=== PATIENT | male | born 1965 | race Caucasian/White ===

== ENCOUNTER 2021-11-16 11:53 | Outpatient (CLI) | payer OTHER, SELFPAY ==
--- NOTE | ~2021-11-16 | XR_ITS ---
EXAMINATION: XR chest 2V DATE: 11/16/2021 13:14 INDICATION: Hypertension. Malignant neoplasm of prostate. Preop. TECHNIQUE: Frontal and lateral views of the chest were obtained. COMPARISON: None. FINDINGS: The chest demonstrates clear lungs without pneumonia, pleural effusion, or pneumothorax. Th e heart size is normal. IMPRESSION: 1. No acute cardiopulmonary disease. Reviewed, dictated and finalized at location A.
--- NOTE | 2021-11-16 12:48 | ECG_ITS ---
Measurements Intervals [place] Rate: 76 P: 39 AR: 182 QRS: 31 QRSD: 101 T: 26 QT: 341 QTc: 384 Interpretive Statements SINUS RHYTHM WITH SINUS ARRHYTHMIA NO PREVIOUS ECG AVAILABLE FOR COMPARISON Electronically Signed On 11-16-2021 15:38:35 CDT by Ja Willams MD
[2021-11-16 13:26] LABS: Basophils Percent Auto 0.7 % (0.2-1.2); Eosinophils Absolute Auto 0.1 K/mm3 (0-0.3); Eosinophils Percent Auto 1.5 % (0-4.4); Hematocrit 46.4 % (42.0-52.0); Hemoglobin 15.3 g/dL (14.0-18.0); Immature Granulocyte Absolute 0.02 K/mm3 (0.00-0.031); Immature Granulocyte Percent A 0.3 % (0-0.5); Lymphocytes Absolute Auto 1.46 K/mm3 (0.9-3.2); Lymphocytes Percent Auto 23.9 % (18.3-44.2); Mean Corpuscular Hemoglobin 31.2 pg (26-34); Mean Corpuscular Volume 94.5 fl (80-100); Mean Platelet Volume 10.5 fl (7.4-10.4); Monocytes Absolute Auto 0.4 K/mm3 (0.1-0.6); Monocytes Percent Auto 6.7 % (2.6-8.5); Neutrophils Absolute Auto 4.1 K/mm3 (1.3-6.7); Neutrophils Percent Auto 66.9 % (45.5-73.1); Platelet Count Result 250 k/mm3 (150-375); Red Blood Count 4.91 M/mm3 (4.6-6.20); Red Cell Distribution Width 12.5 % (11.5-14.5); White Blood Count 6.1 K/mm3 (4.5-10.0)
[2021-11-16 13:30] LABS: Appearance Urine Slightly Cloudy (Clear); Bilirubin Urine Negative (Negative); Color Urine Yellow (Yellow); Glucose Urine UA 2+ mg/dL (Negative); Ketones Urine Negative (Negative); Leukocyte Esterase Ur Negative LEU/UL (Negative); Nitrate Urine Negative (Negative); Protein Urine 1+ mg/dL (Negative); Specific Grav Ur >= 1.030 (1.001-1.035); Urobilinogen Urine 0.2 mg/dL (<2.0); pH Urine 5.5 (5.0-9.0)
[2021-11-16 13:33] LABS: Add Urine Microscopic? YES; Blood Urine Trace-Intact (Negative)
[2021-11-16 13:37] LABS: Mucus Urine Rare /lpf; Squamous Epithelial Cell Urine Rare /hpf (Few); WBC Urine 0-3 /hpf
[2021-11-16 13:39] LABS: INR 1.1; Partial Thromboplastin Time 27.4 SECONDS (22.3-36.8); Prothrombin Time 13.3 Seconds (11.1-14.7)
[2021-11-16 13:43] LABS: Alanine Aminotransferase 54 U/L (6-50); Albumin Level 4.6 g/dL (3.5-5.1); Alkaline Phosphatase 74 U/L (38-126); Anion Gap 8 mmol/L (8-16); Aspartate Amino Transferase 35 U/L (17-59); Bilirubin,Total 0.7 mg/dL (0.2-1.3); Blood Urea Nitrogen 17 mg/dL (9-20); Calcium 9.2 mg/dL (8.4-10.2); Carbon Dioxide 29 mmol/L (22-30); Chloride 102 mmol/L (98-107); Estimated Glomerular Filt Rate > 60; Glucose 228 mg/dL (65-110); Potassium 4.2 mmol/L (3.4-5.0); Sodium 139 mmol/L (137-145)
== END 2021-11-16 11:54 | disposition home or self-care (01) ==
PROVIDERS: Visit Provider Urology
DX: C61 Malignant neoplasm of prostate (principal)
CPT/HCPCS: 36415; 71046; 80053; 81001; 85025; 85610; 85730; 86850; 86900; 86901; 93005

== ENCOUNTER 2021-11-26 00:50 | Day surgery (SDC) | payer OTHER, SELFPAY ==
--- NOTE | 2021-11-05 07:29 | P.HP_ITS ---
H&P: HPI History of Present Illness Date/Time: 11/05/21 07:29 Chief Complaint: Prostate cancer Narrative: Pleasant 56-year-old recently referred with a PSA of 4.47. Prostate ultrasound biopsy revealed a 34.7 g prostate with 6 of 12 cores having Jose 3+3=6 prostate cancer. Five of the cores arose from the left side of the prostate with 1 core positive at the right base. After discussion of therapeutic options he has elected for a robotic prostatectomy with bilateral pelvic lymphadenectomy. He is aware the risk of this including, but not limited to, adverse cardiopulmonary events, rectal injury, persistent or recurrent cancer, erectile dysfunction and urinary incontinence. Review of Systems Cardiovascular: Cardiovascular: Denies chest pain, Denies lightheadedness, Denies palpitations and Denies dyspnea Respiratory: Respiratory: Denies dyspnea Gastrointestinal: Gastrointestinal: Denies diarrhea, Denies nausea and Denies vomiting Genitourinary: Genitourinary: Denies hematuria and Denies dysuria Endocrine: Endocrine: Denies palpitations Meds Home Medications and Allergies Allergies Allergy/AdvReac Type Severity Reaction Status Date / Time No Known Allergies Allergy Unverified 01/18/16 18:56 Exam Const: General: no acute distress Resp: Effort & Inspection: normal respiratory effort GI: Inspection: non-distended GI Palp: No abdominal tenderness and No G uarding due to palpation present (GI) Auscultation: normal bowel sounds Assessment and Plan Assessment and plan (1) Prostate cancer: Code(s): C61 - Malignant neoplasm of prostate Status: Acute Assessment and Plan: * Robotic assisted radical prostatectomy with bilateral pelvic lymphadenectomy
--- NOTE | 2021-11-16 11:47 | PC.NURSE ---
Report to the Outpatient Waiting Room, entrance under the green pavilion located off [facility], at time _0600_ on date _11/26/21_. OR Time: _0730_. - You and your visitor will be asked a series of questions to screen for COVID 19 for your protection. - Only one visitor is allowed at this time. - The patient visitor is requested to leave or wait in car when not with patient. VISITING HOURS 10AM-8PM, USE MAIN HOSPITAL ENTRANCE - A mask is required within the hospital. Patients may have clear liquids (water, carbonated beverages, clear teas, apple juice) until 3 hours prior to surgery (0430 AM) with a maximum of 20 ounces. - No food from midnight until time of surgery Take the following medications with a SIP of water the morning of surgery: _NASAL SPRAY IF NEEDED__ Medications to discontinue per physician __NONE____Date to take last dose Please no deodorant, or body powder the day of surgery. No jewelry (including any body piercings) or valuables the day of surgery, leave them at home. Please take a shower or bath the night before, or the morning of, surgery with an antibacterial soap. Wear comfortable, loose fitting clothing. - Jewelry must be removed prior to entering the operating room. Rings and piercings that are not removed may be cut off. - The hospital will not accept responsibility for valuables. - Please leave all valuables, including medications, at home the day of surgery. If you are going home after surgery, a licensed electric lift truck driver must drive you home. - NO public transportation without another adult. - We recommend that an adult stay with you for 24 hours following discharge. - We also recommend that you do not drive, make important decision, drink alcoholic beverages, or take any drugs that were not prescribed by your health care provider for at least 24 hours after your discharge time. Follow any additional instructions given to you from your DR. RAMOS. If you or anyone in your household have experienced Covid symptoms in the past week, please notify your surgeon or the nurse liaison at the phone number below for possible testing. Instructions given to ___PT and asked if any additional questions and then verbalized understanding. Patient advised to call surgeon office or pre surgery nurse liaison [phone] if any additional questions.
[2021-11-16 12:12] VITALS: BP 142/77; PULSE 84; RESP 20; TEMP 36.7; O2SAT 98; BMI 36.7
--- NOTE | 2021-11-25 15:18 | WPDANESEPPF ---
Anes - Initial Pre Proc Eval Procedure: Operation Date: 11/26/21 07:30 Proposed Procedures p Robotic Assisted Laparoscopic Prostatectomy with Bilateral Pelvic Lymph Node Dissection - Lenin Shultz MD Date/Time: 11/25/21 15:18 Surgeon: Lenin Shultz MD Pre Op Diagnosis: prostate cancer Patient Data Age: 56 Gender: M Height: 1.78 m Weight: 116.2 kg Last Vital Signs Temp 36.7 C 11/16/21 12:12 Pulse 84 11/16/21 12:12 Resp 20 11/16/21 12:12 BP 142/77 H 11/16/21 12:12 Pulse Ox 98 11/16/21 12:12 O2 Del Method Room Air 11/16/21 12:12 Allergies Allergy/AdvReac Type Severity Reaction Status Date / Time No Known Allergies Allergy Unverified 11/16/21 12:34 Home Medications Medication Instructions Recorded Confirmed Type atorvastatin 20 mg tablet 1 tablet HS 11/16/21 11/16/21 History bimatoprost 0.01 % eye drops 1 drp HS 11/16/21 11/16/21 History (Jackie) cetirizine 10 mg capsule (Zyrtec) 10 mg PO DAILY PRN Congestion 11/16/21 11/16/21 History fluticasone propionate 50 1 ea intranasal BID PRN Congestion 11/16/21 11/16/21 History mcg/actuation nasal spray,suspension lisinopril 20 mg tablet 1 tablet QAM 11/16/21 11/16/21 History metformin 500 mg tablet,extended 1 tablet PO QAM 11/16/21 11/16/21 History release 24 hr Patient hx anesthesia problems: none Family hx anesthesia problems: none Results Review: All pre-operative results and documents have been reviewed as part of the pre-operative evaluation. [facility] Past Medical History Medical History (Updated 11/25/21 @ 15:19 by Margarito Damon DO) Diabetes type 2, controlled Glaucoma Hyperlipidemia Hypertension Prostate cancer Social History Social History Smoking status: Never smoker Second hand tobacco smoke exposure: No Alcohol intake: never Substance use: never Substance use type: does not use Living arrangements: with family Spiritual care concerns: No Anes - Eval Final PreProcedure Day of Procedure 11/25/21 15:18 Patient weight: obese Heart: regular rate and rhythm Lungs: clear to auscultation Airway: Mallampati scale class II Neurological: alert and oriented Last oral intake: >/= 8 hours ASA classification: III Emergent: no Anesthetic plan: proceed Anesthesia type and monitoring: general ETT and standard monitoring Results Review: All pre-operative results and documents have been reviewed as part of the pre-operative evaluation. Informed Consent: The patient's anesthetic plan and its attendant risks and benefits were discussed with the patient/family/POA. Questions were solicited and answers provided to the satisfaction of the patient/family/POA.
[2021-11-26] VITALS (13 sets, daily range): BP systolic 98–146; BP diastolic 57–88; PULSE 77–120; RESP 12–20; TEMP 36.3–37.3; O2SAT 94–100
--- NOTE | 2021-11-26 06:24 | WPDHPUPDATE1 ---
History and Physical Update Update Date/Time: 11/26/21 06:24 History and Physical has been reviewed, including an updated exam of the patient. There are NO changes in the patient's condition. Risks, benefits, and alternatives have been discussed and questions answered. Patient agrees to proceed with procedure.
[2021-11-26] MEDS: LACTATED RINGERS 1,000 ML 30 ML IV CONT ×2 (06:30→11:35)
[2021-11-26 07:14] LABS: Glucose Point of Care 153 mg/dl (65-105)
[2021-11-26] MEDS: ceFAZolin 2 GM/D5W 50 ML 2 GM/50 ML BAG IVPB (07:27)
[2021-11-26] MEDS: MINERAL OIL/WHITE PETROLATUM OINTMENT 1 APPLIC EACH EYE (07:56)
--- NOTE | 2021-11-26 11:21 | W.PM.PROC2 ---
Procedure Note - Detailed Date of Procedure 11/26/21 Pre-op Diagnosis Prostate cancer Post-op Diagnosis Same Procedure Performed Robotic assisted radical prostatectomy bilateral pelvic lymphadenectomy Surgeon Lenin Shultz MD Description of Procedure The patient was brought to the operative suite, where he was prepped and draped in routine sterile fashion while in a dorsal lithotomy, deep Trendelenburg position. A supraumbilical 10 mm trocar was placed after insufflation of the abdomen with a Veress needle. Three robotic ports were then placed under direct vision. Two of these were placed in the right lower quadrant - 10 cm and 20 cm lateral to, and in line with, the umbilicus. A third robotic trocar was placed 10 cm to the left of the umbilicus, and 20 cm to the left of the umbilicus, a 12 mm standard laparoscopic trocar was placed to be used as an underwriting assistant port. Lastly, a 5 mm trocar was placed in the left upper quadrant midway between the umbilicus and the left robotic trocar. Attention was then turned to the prostatectomy. I opted for a posterior approach in this patient. An incision was made in the parietal peritoneum along the posterior bladder/posterior prostate about 2 cm above the reflection of the peritoneum over the anterior rectum. The seminal vesicles and vas deferens were immediately identified. Dissection is undertaken in a fashion so as to avoid electrocautery as much as possible, particularly near the tips of the seminal vesicles. Dissection was also carried out in the midline so as to avoid any encounters with the ureters. The vas deferens and the seminal vesicles were dissected in their entirety to the base of the prostate. The plane anterior to Denoviller's fascia, anterior to the rectum and posterior to the prostate was then developed. I then dropped the bladder by incising the anterior parietal peritoneum just lateral to the median umbilical ligaments bilaterally. The bladder was dropped from the anterior abdominal and pelvic wall. The endopelvic fascia was identified and incised bilaterally, allowing for dissection of the posterior-lateral aspect of the prostate. The puboprostatic ligaments were transected near their origin from the posterior pubic ramus. This posterior lateral dissection of the prostate is also undertaken in a fashion so as to avoid electrocautery as much as possible. The dorsal vein of the penis is then secured with an 0 -Vicryl ligature. Attention is then turned to the bladder neck. The anterior bladder neck is incised at the vesico-prostatic junction. The previously placed urethral catheter was drawn through the urethrotomy. A very small bladder neck was maintained throughout the remainder of this dissection. The posterior bladder neck was incised in a fashion so as to avoid any injury to the ureteral orifices. Again, the small aperture of the bladder neck was maintained. The previously dissected vas deferens and the seminal vesicles were brought through the posterior bladder neck incision. The lateral prostatic pedicles were then carefully dissected from the lateral aspect of the prostate bilaterally. The prostatic pedicles were secured with Weck clips and transected. The neurovascular bundles were carefully dissected from the posterior-lateral aspect of the prostate. The dorsal vein of the penis was incised with electrocautery. Using cold scissors, the urethra was incised. After withdrawing the previously placed urethral catheter, the posterior urethra was sharply incised, as was the rectalurethralis muscle. Attention was then turned to an extended bilateral pelvic lymphadenectomy. The limits of this dissection were similar bilaterally. Specifically, the limits were the bifurcation of the common iliac vein proximally, the inguinal ligament distally, the obturator nerve posteriorly and the anterior aspect to the external iliac artery laterally. This dissection was undertaken with care to avoid
[2021-11-26 11:54] LABS: Glucose Point of Care 149 mg/dl (65-105)
--- NOTE | 2021-11-26 12:31 | SUR.PHASEI ---
1230 - DR. RAMOS AT BEDSIDE TALKING WITH PT
--- NOTE | 2021-11-26 13:02 | ADMGEN ---
This patient, Milan Shirley, was admitted to 2 Medical Room 251-. Patient/family oriented to hospital policies and general routines including ID bracelet, bed and alarms, visiting hours, pain management, procedures, bathroom and other care routines, personal items, smoking policy, room service/diet, and visiting hours. Information on how to activate the Rapid Response Team has been discussed. Patient/Family are encouraged to report perceived risks to care and to ask questions if they do not understand what they are told or what they should do. Report received from ROSSANA He.
[2021-11-26 13:05] LABS: Glucose Point of Care 180 mg/dl (65-105)
[2021-11-26] MEDS: LACTATED RINGERS 1,000 ML 125 ML IV CONT ×2 (13:27→21:19)
[2021-11-26 16:25] LABS: Glucose Point of Care 209 mg/dl (65-105)
[2021-11-26] MEDS: INSULIN ASPART (*BKC) 100 UNITS/ML SUB-Q (16:31)
[2021-11-26] MEDS: LORATADINE 10 MG TABLET PO (16:33)
[2021-11-26] MEDS: ATORVASTATIN 20 MG TABLET BY MOUTH (20:49)
[2021-11-26] MEDS: LATANOPROST 0.005% OP SOLN 2.5 ML BTL 1 DROP EACH EYE (20:49)
[2021-11-26 21:40] LABS: Glucose Point of Care 145 mg/dl (65-105)
[2021-11-27 00:35] VITALS: BP 138/71; PULSE 101; RESP 16; TEMP 37.1; O2SAT 99
[2021-11-27 04:33] VITALS: BP 152/82; PULSE 91; RESP 20; TEMP 37.1; O2SAT 98
[2021-11-27] MEDS: LACTATED RINGERS 1,000 ML 125 ML IV CONT (04:49)
[2021-11-27 05:49] LABS: Hematocrit 36.7 % (42.0-52.0); Hemoglobin 12.6 g/dL (14.0-18.0)
[2021-11-27 06:03] LABS: Anion Gap 5 mmol/L (8-16); Blood Urea Nitrogen 14 mg/dL (9-20); Carbon Dioxide 27 mmol/L (22-30); Chloride 104 mmol/L (98-107); Estimated CRCL calculation 92 ml/min; Estimated Glomerular Filt Rate > 60; Glucose 139 mg/dL (65-110); Potassium 3.8 mmol/L (3.4-5.0); Sodium 136 mmol/L (137-145)
[2021-11-27] MEDS: KETOROLAC 30 MG/ML VIAL (*BKC) IV PUSH (06:48)
--- NOTE | 2021-11-27 07:16 | WPDUROPN2 ---
Progress Note: A&P Assessment and Plan (1) Prostate cancer: Code(s): C61 - Malignant neoplasm of prostate Status: Acute Assessment and Plan: Tolerating diet and ambulating well. Nasal drainage without sore throat only complaint. Likely home later today. Subjective Subjective Date/Time Seen: 11/27/21 07:16 Comfortable, tolerating diet. Only complaint -> post-nasal drip without sore throat Review of Systems Cardiovascular: Cardiovascular: Denies chest pain, Denies lightheadedness, Denies palpitations and Denies dyspnea Respiratory: Respiratory: Denies dyspnea Gastrointestinal: Gastrointestinal: Denies diarrhea, Denies nausea and Denies vomiting Genitourinary: Genitourinary: Denies hematuria and Denies dysuria Endocrine: Endocrine: Denies palpitations Objective Data Vital Signs Vital Signs: Vital Signs - 24 hr 11/26/21 11:35 11/26/21 11:50 11/26/21 12:05 Temperature 98.4 F Pulse Rate 77 80 80 Respiratory Rate 12 12 14 Blood Pressure 98/57 L 114/88 107/68 Pulse Oximetry 100 99 99 Oxygen Delivery Simple Face Mask Simple Face Mask Room Air Oxygen Flow Rate 8 8 11/26/21 12:15 11/26/21 12:30 11/26/21 12:40 Temperature Pulse Rate 80 86 80 Respiratory Rate 12 14 12 Blood Pressure 127/71 120/76 114/73 Pulse Oximetry 95 96 94 Oxygen Delivery Room Air Room Air Room Air Oxygen Flow Rate 11/26/21 12:42 11/26/21 12:57 11/26/21 13:27 Temperature 97.3 F L 97.3 F L 97.9 F Pulse Rate 83 85 88 Respiratory Rate 16 16 16 Blood Pressure 129/72 126/75 140/72 Pulse Oximetry 97 97 100 Oxygen Delivery Oxygen Flow Rate 11/26/21 14:27 11/26/21 13:10 11/26/21 17:59 Temperature 97.6 F 98.8 F Pulse Rate 103 H 120 H Respiratory Rate 16 17 Blood Pressure 138/83 124/74 Pulse Oximetry 98 98 Oxygen Delivery Room Air Oxygen Flow Rate 11/26/21 21:02 11/26/21 20:00 11/27/21 00:35 Temperature 99.2 F 98.8 F Pulse Rate 106 H 101 H Respiratory Rate 20 16 Blood Pressure 135/88 138/71 Pulse Oximetry 96 99 Oxygen Delivery Room Air Oxygen Flow Rate 11/27/21 04:33 Temperature 98.7 F Pulse Rate 91 Respiratory Rate 20 Blood Pressure 152/82 H Pulse Oximetry 98 Oxygen Delivery Oxygen Flow Rate Intake/Output Intake/Output: Intake & Output 11/24/21 11/25/21 11/26/21 11/27/21 23:59 23:59 23:59 23:59 Intake Total 1650 1400 Output Total 1620 1300 Balance 30 100 Meds/Results Medications: Active Medications Generic Name Dose Route Start Last Admin Trade Name Freq PRN Reason Stop Dose Admin Atorvastatin Calcium 20 mg 11/26/21 21:00 11/26/21 20:49 Atorvastatin 20 Mg Tablet BY MOUTH 20 mg HS SAJAN Administration Dextrose 12.5 gm 11/26/21 11:20 Dextrose 50% 25 Gm/50 Ml Syringe IV PUSH PRN PRN Hypoglycemia Protocol Fluticasone Propionate 1 spray 11/26/21 12:42 Fluticasone Propionate 0.05% Na Spr 16 Gm Btl (*Bkc) NASAL BID PRN Congestion Glucagon 1 mg 11/26/21 11:20 Glucagon For Inj 1 Mg Vial IM PRN PRN Hypoglycemia Protocol Glucose 15 gm 11/26/21 11:20 Glucose Oral Gel 15 Gm Of Glucse In 37.5 Gm Tube PO PRN PRN Hypoglycemia Protocol Hyoscyamine 0.125 mg 11/26/21 12:42 Hyoscyamine Sulfate 0.125 Mg Tablet SUBLINGUAL Q4H PRN Bladder Spasm Dextrose 1,000 mls @ 100 mls/hr 11/26/21 11:20 Dextrose 5% 1,000 Ml IVPB PRN PRN Hypoglycemia Protocol Lactated Ringer's 1,000 mls @ 125 mls/hr 11/26/21 12:42 11/27/21 04:49 Lr - Lactated Ringers Iv IV CONT 125 mls/hr .Q8H SAJAN Administration Acetaminophen 1,000 mg in 100 mls @ 400 mls/hr 11/26/21 21:00 11/27/21 04:10 Ofirmev 1,000 Mg Ivpb IVPB 11/27/21 13:26 Infused Q6H SAJAN Infusion Insulin Aspart 2 - 5 units 11/26/21 12:00 11/26/21 16:31 Insulin Aspart (*Bkc) 100 Units/Ml SUB-Q 2 units TIDWM SAJAN Administration Protocol Ketorolac Tromet
[2021-11-27 07:43] LABS: Glucose Point of Care 129 mg/dl (65-105)
--- NOTE | 2021-11-27 07:57 | WPDANESPN ---
Anes - Prog Note Post-Op Date/Time: 11/27/21 07:57 Cardiovascular status: normal Respiratory status: normal Airway patency: baseline Mental status: baseline Post-Op hydration status: normal Vital Signs: Last Vital Signs Temp 37.1 C 11/27/21 04:33 Pulse 91 11/27/21 04:33 Resp 20 11/27/21 04:33 BP 152/82 H 11/27/21 04:33 Pulse Ox 98 11/27/21 04:33 O2 Del Method Room Air 11/26/21 20:00 O2 Flow Rate 8 11/26/21 11:50 Pain Score (VAS): 3 I/O: Intake & Output 11/26/21 11/26/21 11/27/21 15:59 23:59 07:59 Intake Total 350 1300 1400 Output Total 70 1550 1300 Balance 280 -250 100 Laboratory Tests 11/27/21 05:17 11/27/21 05:17 11/26/21 11/26/21 11/26/21 11:50 13:01 16:23 Hgb Hct Sodium Potassium Chloride Carbon Dioxide Anion Gap BUN Creatinine Estim Creat Clear Calc Estimated GFR Glucose POC Capillary Glucose 149 H 180 H 209 H Calcium 11/26/21 11/27/21 11/27/21 20:48 05:17 05:17 Hgb 12.6 L Hct 36.7 L Sodium 136 L Potassium 3.8 Chloride 104 Carbon Dioxide 27 Anion Gap 5 L BUN 14 Creatinine 1.00 Estim Creat Clear Calc 92 Estimated GFR > 60 Glucose 139 H POC Capillary Glucose 145 H Calcium 8.0 L 11/27/21 07:36 Hgb Hct Sodium Potassium Chloride Carbon Dioxide Anion Gap BUN Creatinine Estim Creat Clear Calc Estimated GFR Glucose POC Capillary Glucose 129 H Calcium Post-procedural complaints: none Patient Feedback: Patient satisfied with anesthetic care.
[2021-11-27] MEDS: metFORMIN HCL XR 500 MG TAB.SR.24H PO (08:17)
[2021-11-27] MEDS: lisinopriL 20 MG TABLET BY MOUTH (08:17)
[2021-11-27] MEDS: levoFLOXacin 500 MG TABLET PO (08:17)
[2021-11-27] MEDS: FLUTICASONE PROPIONATE 0.05% NA SPR 16 GM BTL (*BKC) 1 SPRAY NASAL (08:19)
[2021-11-27] MEDS: LORATADINE 10 MG TABLET PO (10:05)
[2021-11-27 10:27] VITALS: BP 119/69; PULSE 86; RESP 18; TEMP 36.4; O2SAT 98
[2021-11-27 11:53] LABS: Glucose Point of Care 109 mg/dl (65-105)
--- NOTE | 2021-11-27 12:06 | PM.DS ---
DS: Admitting Diagnosis Discharge Date 11/27/2021 Admitting Diagnosis Prostate cancer DS: Summary Hospital Course Hospital Course: This patient was admitted on the morning of his planned robotic prostatectomy. This procedure was uneventful, as was his postoperative course. By the evening of the procedure he was sitting at the bedside in tolerating a liquid diet. The following morning he was ambulating freely and tolerating regular food. His catheter drainage remained essentially clear throughout. His postoperative hemoglobin and serum creatinine were unremarkable. At the time of discharge he has been instructed in appropriate care for his [place] catheter with both a leg bag and bedside bag. He will be discharged with plans to follow-up in 1 week with a cystogram. Time Spent with Patient Time attestation: Total time spent providing and/or coordinating discharge services: DS: Data Data Completed and Pending Pending studies at discharge: Pending at discharge 11/26/21 09:35 Surgical [PTH] Routine Surgical [PTH] Routine Labs on day of discharge: Labs from last 24 hours 11/27/21 11/27/21 11/27/21 11:37 07:36 05:17 Hgb Hct Sodium 136 L Potassium 3.8 Chloride 104 Carbon Dioxide 27 Anion Gap 5 L BUN 14 Creatinine 1.00 Estim Creat Clear Calc 92 Estimated GFR > 60 Glucose 139 H POC Capillary Glucose 109 H 129 H Calcium 8.0 L 11/27/21 11/26/21 11/26/21 05:17 20:48 16:23 Hgb 12.6 L Hct 36.7 L Sodium Potassium Chloride Carbon Dioxide Anion Gap BUN Creatinine Estim Creat Clear Calc Estimated GFR Glucose POC Capillary Glucose 145 H 209 H Calcium 11/26/21 13:01 Hgb Hct Sodium Potassium Chloride Carbon Dioxide Anion Gap BUN Creatinine Estim Creat Clear Calc Estimated GFR Glucose POC Capillary Glucose 180 H Calcium Discharge Plan Discharge Patient Disposition: Home, Self-Care Discharge Instructions: 1) Merrill catheter -> leg bag / bedside bag at night. 2) No lifting/straining >15lbs. x3 weeks. 3) No driving x1-week. 4) Resume normal, pre-operative diet. 5) My office will contact regarding follow-up in 1-week with cystogram. - Cystogram in Radiology at [facility] on 12/03/21 at 12:30pm (arrive at 12, then follow up immediately for cath removal in the office). - You will follow up with Dr. Shultz on 12/03/21 at 1:00pm. Stand Alone Forms: General Discharge Instructions Discharge Orders: Discharge Order (Routine); Ordered 11/27/21 Ordered By: Lenin Shultz Discharge Medications: New ciprofloxacin HCl 500 mg tablet 500 mg PO Q12H Qty: 10 0RF docusate sodium [Colace] 100 mg capsule 100 mg PO DAILY Qty: 30 0RF hydrocodone-acetaminophen 5-325 mg tablet 1 - 2 tablet PO Q6H PRN (Reason: pain) Qty: 30 0RF hyoscyamine sulfate 0.125 mg tablet 0.125 mg PO Q6H PRN (Reason: bladder spasms) Qty: 20 2RF Continued atorvastatin 20 mg tablet 1 tablet HS lisinopril 20 mg tablet 1 tablet QAM metformin 500 mg tablet extended release 24 hr 1 tablet PO QAM [place] 0.01 % drops 1 drp HS Rx Instructions: ONE GTT EACH EYE @ NOC fluticasone propionate 50 mcg/actuation spray,suspension 1 ea INTRANASAL BID PRN (Reason: Congestion) Zyrtec 10 mg Capsule 10 mg PO DAILY PRN (Reason: Congestion)
== END 2021-11-27 13:07 | disposition home or self-care (01) ==
LOC: ANHSURGERY 06:05 → ANH2MED 12:44
PROVIDERS: Visit Provider Urology
PROC: 0VT04ZZ Resection of Prostate, Percutaneous Endoscopic Approach (ICD-10-PCS; CPT 55867; principal; 2021-11-26 07:30)
DX: C61 Malignant neoplasm of prostate (principal); Z79.84 Long term (current) use of oral hypoglycemic drugs; E11.9 Type 2 diabetes mellitus without complications; E78.5 Hyperlipidemia, unspecified; I10 Essential (primary) hypertension; E66.9 Obesity, unspecified; Z68.36 Body mass index [BMI] 36.0-36.9, adult
CPT/HCPCS: 55866; 38571; S2900; 36415; 80048; 82948; 85014; 85018; 88305; 88309; 88342; A9270; J0131; J0690; J1100; J1170; J1815; J1885; J2250; J2370; J2405; J2704; J2710; J3010; J7030; J7120; Q9968

== ENCOUNTER 2021-12-03 12:23 | Outpatient (CLI) | payer OTHER, SELFPAY ==
--- NOTE | ~2021-12-03 | XR_ITS ---
EXAMINATION: XR cystogram DATE: 12/03/2021 13:18 INDICATION: Prostate cancer status post prostatectomy. TECHNIQUE: Water-soluble contrast was gravity-infused through the patient's [place]ill catheter. Multiple fluoroscopic images were obtained. Fluoroscopy exposure time was 0.3 minutes. The total number of nomi ges was 8. COMPARISON: None. FINDINGS: There is mass effect on the sides of the bladder, likely pelvic inflammation from recent santiago rgery. There is no ureteral reflux. There is no extraluminal leakage of contrast. IMPRESSION: 1. No extraluminal leakage of contrast. Reviewed, dictated and finalized at location A.
== END 2021-12-03 12:24 | disposition home or self-care (01) ==
PROVIDERS: Visit Provider Urology
DX: C61 Malignant neoplasm of prostate (principal)
CPT/HCPCS: 51600; 74430; Q9967

== ENCOUNTER 2023-02-07 14:36 | Emergency (ER) | payer OTHER, SELFPAY ==
--- NOTE | ~2023-02-07 | CT_ITS ---
EXAMINATION: CT abdomen pelvis w con DATE: 02/07/2023 16:51 INDICATION: Left lower quadrant abdominal pain. TECHNIQUE: Computed tomography (CT) of the abdomen and pelvis was performed with 100 mL Omnipaque 350 intravenous contrast. Automated exposure control and iterative reconstruction technique were employe d. The dose-length product was 1426.57 mGy-cm. COMPARISON: None. FINDINGS: The visualized portions of the lung bases demonstrate mild atelectasis. No pleural effusion . The heart size is normal. No pericardial effusion. There is diffuse hepatic steatosis. The gallblad gricelda spleen, pancreas, adrenal glands, and right kidney are normal. There is a 7 mm cyst in left kidne y. There is fat stranding around an epiploic appendage of descending colon, consistent with epiploic appendagitis. There are no dilated loops of bowel. The appendix is normal. There is mild aortic ather osclerosis. There are no pathologically enlarged lymph nodes. There is no free intraperitoneal fluid. There is a left inguinal hernia containing fat. There is mild thoracic and lumbar spondylosis. IMPRESSION: 1. Epiploic appendagitis of descending colon. 2. Left inguinal hernia containing fat. Reviewed, dictated and finalized at location E.
[2023-02-07 14:54] VITALS: BP 120/85; PULSE 91; RESP 18; TEMP 36.7; O2SAT 98
[2023-02-07 15:24] LABS: Basophils Absolute Auto 0.1 K/mm3 (0.0-0.1); Basophils Percent Auto 0.7 % (0.2-1.2); Eosinophils Absolute Auto 0.1 K/mm3 (0-0.3); Eosinophils Percent Auto 1.6 % (0-4.4); Hematocrit 42.7 % (42.0-52.0); Hemoglobin 14.2 g/dL (14.0-18.0); Immature Granulocyte Absolute 0.03 K/mm3 (0.00-0.031); Immature Granulocyte Percent A 0.3 % (0-0.5); Lymphocytes Absolute Auto 1.57 K/mm3 (0.9-3.2); Lymphocytes Percent Auto 17.9 % (18.3-44.2); Mean Corpuscular HGB Conc 33.3 g/dl (32-36); Mean Corpuscular Hemoglobin 31.8 pg (26-34); Mean Corpuscular Volume 95.5 fl (80-100); Mean Platelet Volume 10.4 fl (7.4-10.4); Monocytes Absolute Auto 0.8 K/mm3 (0.1-0.6); Monocytes Percent Auto 8.5 % (2.6-8.5); Neutrophils Absolute Auto 6.2 K/mm3 (1.3-6.7); Platelet Count Result 276 k/mm3 (150-375); Red Blood Count 4.47 M/mm3 (4.6-6.20); Red Cell Distribution Width 12.8 % (11.5-14.5); White Blood Count 8.8 K/mm3 (4.5-10.0)
[2023-02-07 15:25] LABS: Appearance Urine Clear (Clear); Bilirubin Urine Negative (Negative); Blood Urine Negative (Negative); Color Urine Yellow (Yellow); Glucose Urine UA Negative (Negative); Ketones Urine Negative (Negative); Leukocyte Esterase Ur Negative LEU/UL (Negative); Nitrate Urine Negative (Negative); Protein Urine Negative (Negative); Urobilinogen Urine 0.2 mg/dL (<2.0)
[2023-02-07 15:31] LABS: Add Urine Microscopic? NO
--- NOTE | 2023-02-07 15:41 | ED.ABDPAIN ---
HPI - Abdominal Pain General Chief Complaint: Abdominal Pain Stated Complaint: abdominal pain Time Seen by Provider: 02/07/23 15:24 History of Present Illness HPI narrative: Pt presents with LLQ abdominal pain for 4 days progressively worsening. Pt denies vomiting or diarrhea or fever. Related Data Home Medications Medication Instructions Recorded Confirmed atorvastatin 20 mg tablet 1 tablet HS 11/16/21 11/26/21 bimatoprost 0.01 % eye drops 1 drp HS 11/16/21 11/26/21 (Jackie) cetirizine 10 mg capsule (Zyrtec) 10 mg PO DAILY PRN Congestion 11/16/21 11/26/21 fluticasone propionate 50 1 ea intranasal BID PRN Congestion 11/16/21 11/26/21 mcg/actuation nasal spray,suspension lisinopril 20 mg tablet 1 tablet QAM 11/16/21 11/26/21 metformin 500 mg tablet,extended 1 tablet PO QAM 11/16/21 11/26/21 release 24 hr Allergies Allergy/AdvReac Type Severity Reaction Status Date / Time No Known Allergies Allergy Verified 11/26/21 13:05 Review of Systems Review of Systems: All systems reviewed & are unremarkable except as noted in HPI and below PMFSH Past Medical History Medical History (Updated 02/07/23 @ 17:25 by Humaira Don III, DO) Diabetes type 2, controlled Glaucoma Hyperlipidemia Hypertension Prostate cancer Social History Social History Smoking status: Never smoker Second hand tobacco smoke exposure: No Alcohol intake: never Substance use: never Substance use type: does not use Living arrangements: with family Spiritual care concerns: No Exam Const: General: healthy appearing Nutritional Appearance: well nourished Orientation/consciousness: patient oriented x3 Limitations: no limitations Resp: Effort & Inspection: normal respiratory effort Auscultation: clear to auscultation bilaterally Cardio: Rate: regular rate Rhythm: regular rhythm GI: GI Palp: Yes Soft to palpation and Yes Tenderness to palpation present (GI) (lateral lower left abdomen) Auscultation: normal bowel sounds Back/Spine/Pelvis: Back: no CVA tenderness Skin: General skin exam: normal color Rashes: no rashes Wounds: no wounds Neuro: General: patient oriented x3, moves all extremities and no focal motor deficits Cranial nerves: Yes Nystagmus not present Speech: normal speech Extrem: General: normal to inspection and no clubbing, cyanosis or edema Psych: Mental Status: mental status grossly normal Affect: normal affect Attitude: cooperative Course Vital Signs Vital signs: Vital Signs Temperature 98.1 F 02/07/23 14:54 Pulse Rate 91 02/07/23 14:54 Respiratory Rate 18 02/07/23 14:54 Blood Pressure 120/85 02/07/23 14:54 Pulse Oximetry 98 02/07/23 14:54 Temperature 98.1 F 02/07/23 14:54 Pulse Rate 86 02/07/23 17:34 Respiratory Rate 18 02/07/23 17:34 Blood Pressure 110/73 02/07/23 17:34 Pulse Oximetry 98 02/07/23 17:34 MDM - Abdominal Pain Differential Diagnosis Differential diagnosis: Likely calculus of kidney, constipation, diverticulitis, gastroenteritis and small bowel obstruction Medical Records Attestation: I reviewed the patient's medical records. Lab Data Attestation: I reviewed the patient's lab results. 02/07/23 15:17 02/07/23 15:17 Labs: Lab Results 02/07/23 02/07/23 Range/Units 15:15 15:17 WBC 8.8 (4.5-10.0) K/mm3 RBC 4.47 L (4.6-6.20) M/mm3 Hgb 14.2 (14.0-18.0) g/dL Hct 42.7 (42.0-52.0) % MCV 95.5 (80-100) fl MCH 31.8 (26-34) pg MCHC 33.3 (32-36) g/dl RDW 12.8 (11.5-14.5) % Plt Count 276 (150-375) k/mm3 MPV 10.4 (7.4-10.4) fl Immature Gran % (Auto) 0.3 (0-0.5) % Neut % (Auto) 71.0 (45.5-73.1) % Lymph % (Auto) 17.9 L (18.3-44.2) % [place] % (Auto) 8.5 (2.6-8.5) % Eos % (Auto) 1.6 (0-4.4) % Baso % (Auto) 0.7 (0.2-1.2) % Lymph # (Auto) 1.57 (0.9-3.2) K/mm3 [place] # (Auto)
[2023-02-07] MEDS: ONDANSETRON INJ 4 MG/2 ML VIAL IV PUSH (15:54)
[2023-02-07] MEDS: fentaNYL CITRATE INJ (*CRX) 100 MCG/2 ML VIAL 50 MCG IV PUSH (15:54)
[2023-02-07 16:33] LABS: Alanine Aminotransferase 39 U/L (6-50); Albumin Level 4.6 g/dL (3.5-5.1); Alkaline Phosphatase 78 U/L (38-126); Anion Gap 7 mmol/L (8-16); Aspartate Amino Transferase 35 U/L (17-59); Bilirubin,Total 0.5 mg/dL (0.2-1.3); Blood Urea Nitrogen 21 mg/dL (9-20); Calcium 9.7 mg/dL (8.4-10.2); Carbon Dioxide 31 mmol/L (22-30); Chloride 102 mmol/L (98-107); Estimated CRCL calculation 76 ml/min; Estimated Glomerular Filt Rate > 60; Glucose 102 mg/dL (65-110); Lipase 123 U/L (23-300); Potassium 4.1 mmol/L (3.4-5.0); Sodium 140 mmol/L (137-145)
--- NOTE | 2023-02-07 16:42 | PC.NURSE ---
pt taken to CT at this time
[2023-02-07 17:34] VITALS: BP 110/73; PULSE 86; RESP 18; O2SAT 98
== END 2023-02-07 17:36 | disposition home or self-care (01) ==
PROVIDERS: Emergency Medicine; Emergency Provider Emergency Medicine
DX: K63.89 Other specified diseases of intestine (principal); E11.9 Type 2 diabetes mellitus without complications; E78.5 Hyperlipidemia, unspecified; I10 Essential (primary) hypertension; Z85.46 Personal history of malignant neoplasm of prostate
CPT/HCPCS: 36415; 74177; 80053; 81003; 83690; 85025; 96374; 96375; 99284; J2405; J3010; Q9967

== ENCOUNTER 2025-01-04 18:10 | Emergency (ER) | payer OTHER, SELFPAY ==
--- NOTE | 2025-01-04 18:24 | ED_ITS ---
HPI - URI/Sore Throat General Stated Complaint: FEVER/HEADACHE/CONGESTION/CHILLS Time Seen by Provider: 01/04/25 18:50 Source: patient and RN notes reviewed Mode of arrival: ambulatory Limitations: no limitations History of Present Illness HPI Narrative: 59-year-old male presents with concern for fever, headache, congestion and chills that started today. He denies known sick contacts. He reports mild cough, runny nose and stuffy nose. Denies sore throat. He has taken aspirin MD elicited complaint: other (fever) Related Data Home Medications ?Medication ?Instructions ?Recorded ?Confirmed ?Last Taken ?Type atorvastatin 20 mg tablet 1 tablet HS 11/16/21 11/26/21 11/25/21 21:00 History bimatoprost 0.01 % eye drops 1 drp HS 11/16/21 11/26/21 11/25/21 21:00 History (Jackie) cetirizine 10 mg capsule (Zyrtec) 10 mg PO DAILY PRN Congestion 11/16/21 11/26/21 11/25/21 21:00 History fluticasone propionate 50 1 ea intranasal BID PRN Congestion 11/16/21 11/26/21 11/25/21 09:00 History mcg/actuation nasal spray,suspension lisinopril 20 mg tablet 1 tablet [facility] 11/16/21 11/26/21 11/25/21 09:00 History metformin 500 mg tablet,extended 1 tablet PO QAM 11/16/21 11/26/21 11/25/21 09:00 History release 24 hr Allergies Allergy/AdvReac Type Severity Reaction Status Date / Time No Known Allergies Allergy Verified 01/04/25 18:43 Review of Systems Review of Systems: CONSTITUTIONAL: Reports malaise, chills, sweats, fever. EYES: Denies visual changes, redness, or discharge. ENT: Reports rhinorrhea, congestion. Denies sinus pain, otalgia and sore throat. CARDIOVASCULAR: Denies chest pain, palpitations, or edema. RESPIRATORY: Reports mild cough. Denies dyspnea. GASTROINTESTINAL: Denies abdominal pain, nausea, vomiting, diarrhea SKIN: Denies rash or itching. MUSCULOSKELETAL: Reports myalgia. NEUROLOGIC: Reports headache. All systems reviewed & are unremarkable except as noted in HPI and below PMFSH Past Medical History Medical History (Updated 01/04/25 @ 18:54 by Oly Raymond NP) Glaucoma Diabetes type 2, controlled Hyperlipidemia Hypertension Prostate cancer Social History Social History Smoking status: Never smoker Second hand tobacco smoke exposure: No Alcohol intake: never Substance use: never Substance use type: does not use Living arrangements: with family Spiritual care concerns: No Comments At time of signature, agree with nursing past medical, surgical, social and family history. There is no relevant family history pertinent to the presenting complaint Exam Narrative: GENERAL: Well-appearing, well-nourished, and in no acute distress. HEAD: Normocephalic EYES: PERRLA, conjunctivae clear ENT: Nares clear. Mucous membranes moist. TM pearly anand with dull light reflex bilaterally; no tragal tenderness. Oropharynx not erythematous without lesions. Tonsils not enlarged and without exudate, no drooling, no hoarseness, no trismus, uvula midline. NECK: Supple. No lymphadenopathy CHEST: Clear to auscultation, breath sounds equal. No wheezing, rhonchi, rales, or stridor. No respiratory distress, speaks in full sentences. HEART: Regular rate and rhythm. No murmur heard. SKIN: Warm, dry, no rash. NEURO: Alert and oriented x3. PSYCH: Normal mood and affect Course Course Emergency Course: Patient is aware of diagnosis, understands and agrees to treatment plan. Anticipatory guidance given. Patient agrees to follow-up as directed and is aware of reasons to seek care at the emergency department. Portions of this record may have been created with voice recognition software Level of Care: Express Care Visit Vital Signs Vital signs: Reviewed. MDM - URI/Sore Throat MDM Narrative Medical decision making narrative: Differential diagnosis considered: Mazariegos virus, strep pharyngitis, allergic rhinitis, upper respiratory tract infection, sinusitis, rhinosinusitis, nasopharyngitis. viral pharyngitis, otitis media, otitis externa, pneumonia, bronchitis, viral cough syndrome, viral syndrome, and influenza. Exam findings show no acute concerns or changes; patient is non-toxic appearing and is in no distress. Patient is appropriate for outpatient treatment and follow-up. Lab Data Attestation: I reviewed the patient's lab results. Critical Care Time Critical Care Time Critical Care Time: No Discharge Plan Discharge Clinical Impression: Acute viral syndrome Patient Disposition: Home Condition: Stable Instructions: Viral Syndrome (ED) Additional Instructions: Your COVID and flu tests are negative -Take strict precautions to prevent the spread of your virus. Be diligent about covering your cough (even when you are alone) and washing your hands frequently. -You may contagious until you have been symptom and/or fever free for 24 hours without fever reducing medicine -Alternate Ibuprofen and Tylenol for pain and fever relief (per package directions) -Drink plenty of fluid - drink fluid with electrolytes such as Gatorade or other oral re-hydration solution. Avoid caffeine, which can make dehydration worse. -Get plenty of rest to help your body heal. -Use a cool mist humidifier for chest and nasal congestion. -Eat RAW honey or use cough drops to ease throat discomfort -Do not smoke or expose children to secondhand smoke -Wash your hands frequently. -Please follow-up with your primary care doctor in the next 1-2 days if your symptoms do not improve. -If you have any worsening of symptoms or any other concerns please go to the ED immediately. -Please take medications as prescribed and continue taking your home medications as usual. Patient Language: Turkmen Prescriptions: No Action atorvastatin 20 mg tablet 1 tablet HS lisinopril 20 mg tablet 1 tablet QAM metformin 500 mg tablet extended release 24 hr 1 tablet PO QAM [place] 0.01 % drops 1 drp HS Rx Instructions: ONE GTT EACH EYE @ NOC fluticasone propionate 50 mcg/actuation spray,suspension 1 ea INTRANASAL BID PRN (Reason: Congestion) Zyrtec 10 mg Capsule 10 mg PO DAILY PRN (Reason: Congestion) ciprofloxacin HCl 500 mg tablet 500 mg PO Q12H Qty: 10 0RF docusate sodium [Colace] 100 mg capsule 100 mg PO DAILY Qty: 30 0RF hydrocodone-acetaminophen 5-325 mg tablet 1 - 2 tablet PO Q6H PRN (Reason: pain) Qty: 30 0RF hyoscyamine sulfate 0.125 mg tablet 0.125 mg PO Q6H PRN (Reason: bladder spasms) Qty: 20 2RF naproxen [Naprosyn] 500 mg tablet 500 mg PO BID Qty: 20 0RF hydrocodone-acetaminophen 5-300 mg tablet 1 tablet PO Q6H PRN (Reason: pain) Qty: 14 0RF Follow-up/Referrals: Renato,Raghu [Other] Stand Alone Forms: Work/School Release IP Time of Disposition: 18:53
[2025-01-04 18:38] VITALS: BP 115/72; PULSE 117; RESP 16; TEMP 38.2; O2SAT 100
[2025-01-04 18:56] LABS: EDCOVIDSCREEN Negative (Negative); EDINFLUASCREEN Negative (Negative); EDINFLUBSCREEN Negative (Negative)
== END 2025-01-04 18:58 | disposition home or self-care (01) ==
PROVIDERS: Emergency Provider Nurse Practitioner
DX: B34.9 Viral infection, unspecified (principal); Z20.822 Contact with and (suspected) exposure to COVID-19; E11.39 Type 2 diabetes mellitus with other diabetic ophthalmic complication; H42 Glaucoma in diseases classified elsewhere; Z79.84 Long term (current) use of oral hypoglycemic drugs; I10 Essential (primary) hypertension; E78.5 Hyperlipidemia, unspecified; Z85.46 Personal history of malignant neoplasm of prostate
CPT/HCPCS: 87426; 87804; 99212; G0463